=== PATIENT | female | born 1980 | race African-American/Black ===

== ENCOUNTER 2017-06-10 15:40 | Emergency (ER) | payer MEDICAID ==
[~2017-06-10] VITALS: Ht 167.6 cm; Wt 59.0 kg
[2017-06-10 15:53] VITALS: BP 122/64
== END 2017-06-10 18:14 | disposition left against medical advice (07) ==
LOC: ER 16:48
DX: R51 Headache (principal)
CPT/HCPCS: 99281

== ENCOUNTER 2017-07-13 04:31 | Emergency (ER) | payer MEDICAID ==
[~2017-07-13] VITALS: Ht 160 cm; Wt 58.0 kg
[2017-07-13 07:24] LABS: CLARITY URINE CLEAR (CLEAR); COLOR URINE YELLOW (YELLOW); KETONES URINE TRACE (NEGATIVE); LEUKOCYTE ESTERASE URINE 2+ (NEGATIVE); NITRITE URINE NEGATIVE (NEGATIVE); OCCULT BLOOD URINE NEGATIVE (NEGATIVE); PROTEIN URINE NEGATIVE (NEGATIVE); SPECIFIC GRAVITY URINE 1.019 (1.005-1.030)
[2017-07-13 07:50] LABS: *AMPHETAMINES SCREEN URINE NEGATIVE (NEGATIVE); *BARBITURATES SCREEN URINE NEGATIVE (NEGATIVE); *BENZODIAZEPINES SCREEN URINE NEGATIVE (NEGATIVE); *COCAINE SCREEN URINE NEGATIVE (NEGATIVE); METHADONE URINE SCREEN NEGATIVE (NEGATIVE); OPIATES URINE SCREEN NEGATIVE (NEGATIVE)
[2017-07-13 07:52] LABS: PHENCYCLIDINE URINE SCREEN NEGATIVE (NEGATIVE)
[2017-07-13 07:57] LABS: CANNABINOID URINE SCREEN PRESUMTIVE POSITIVE (NEGATIVE)
[2017-07-13] MEDS ORDERED: IBUPROFEN 600MG TABLET PO ONE (08:00)
[2017-07-13 08:45] VITALS: BP 120/78
== END 2017-07-13 10:35 | disposition home or self-care (01) ==
LOC: ER 04:31
DX: N63.10 Unspecified lump in the right breast, unspecified quadrant (principal); R51 Headache; N39.0 Urinary tract infection, site not specified; R03.0 Elevated blood-pressure reading, without diagnosis of hypertension; F12.10 Cannabis abuse, uncomplicated; F17.210 Nicotine dependence, cigarettes, uncomplicated
CPT/HCPCS: 76641; 80305; 81003; 81025; 87086; 99285